=== PATIENT | male | born 1980 | race Caucasian/White ===

== ENCOUNTER 2023-04-26 13:55 | Day surgery (SDC) | payer OTHER ==
[2023-04-26] MEDS ORDERED: BUPIVACAINE 0.5% VIAL IJ ONE (13:56)
[2023-04-26] MEDS ORDERED: Depo-Medrol 40 MG/ML IM ONE (13:56)
[2023-04-26] MEDS ORDERED: Decadron 4 MG INJ IV ONE (13:56)
[2023-04-26] MEDS ORDERED: Versed 2 MG/2 ML Injection ONE (15:43)
[2023-04-26] MEDS ORDERED: DIPRIVAN 200 MG/20 ML IV ONE ×2 (15:43→15:51)
[2023-04-26] MEDS ORDERED: Lactated Ringers 1,000 ML IV ONE (16:17)
--- NOTE | 2023-04-26 16:44 | XRAY ---
Indication: Right greater trochanter bursa injection and ilioinguinal nerve block. Intraoperative fluoroscopy provided for 15 seconds. Single digital spot image submitted for interpretation demonstrates needle tip projecting lateral to the right greater trochanter. Small amount of contrast injected for needle tip placement. Correlate with intraoperative findings/report. Incidental partially visualized right total hip arthroplasty.
--- NOTE | 2023-04-26 16:47 | XRAY ---
15 seconds of fluoroscopy was used in surgery for a right greater trochanteric bursa and ilioinguinal nerve block.
== END 2023-04-26 16:25 | disposition home or self-care (01) ==
LOC: SDC 13:55
PROVIDERS: ATTEND Psychiatry & Neurology Pain Medicine
DX: M70.61 Trochanteric bursitis, right hip (principal)
CPT/HCPCS: 20610; 64425; 73501; 76942; 77002; J1030; J1100; J2250; J2704; Q9966

== ENCOUNTER 2023-06-21 10:15 | Day surgery (SDC) | payer OTHER ==
[2023-06-21] MEDS ORDERED: Sodium Chloride 0.9(Preservative Free) 10 ML IJ ONE (10:16)
[2023-06-21] MEDS ORDERED: Depo-Medrol 40 MG/ML IM ONE (10:16)
[2023-06-21] MEDS ORDERED: DIPRIVAN 200 MG/20 ML IV ONE (12:24)
[2023-06-21] MEDS ORDERED: Versed 2 MG/2 ML Injection ONE (12:24)
[2023-06-21] MEDS ORDERED: Lactated Ringers 1,000 ML IV ONE (14:10)
--- NOTE | 2023-06-21 14:43 | XRAY ---
Indication: Right L2-L4 transforaminal MAGDY. Intraoperative fluoroscopy provided for 52 seconds. 5 digital spot image submitted for interpretation demonstrates posterior needle tips projecting over the expected right L2 and L3 nerve roots. Small amount of contrast injected for needle tip placement. Correlate with intraoperative findings/report.
--- NOTE | 2023-06-21 14:51 | XRAY ---
52 seconds of fluoroscopy was used in surgery for a right L2-L4 transforaminal MAGDY.
== END 2023-06-21 12:50 | disposition home or self-care (01) ==
LOC: SDC-PAIN 10:15
PROVIDERS: ATTEND Psychiatry & Neurology Pain Medicine
DX: M54.16 Radiculopathy, lumbar region (principal); Z79.899 Other long term (current) drug therapy
CPT/HCPCS: 64483; 64484; 72100; 77003; J1030; J2250; J2704; Q9966